=== PATIENT | female | born 1960 | race Two or more races ===

== ENCOUNTER 2018-02-09 01:00 | Outpatient (CLI) | payer BC, OTHER | END 2018-02-09 23:59 | disposition home or self-care (01) | LOC: US 01:00 | PROVIDERS: ATTEND Legal Medicine | DX: I70.201 Unspecified atherosclerosis of native arteries of extremities, right leg (principal); Z72.0 Tobacco use | CPT/HCPCS: 93931-RT ==

== ENCOUNTER 2018-12-05 12:59 | Outpatient (CLI) | payer BC, OTHER | END 2018-12-05 23:59 | disposition home or self-care (01) | LOC: US 12:59 | PROVIDERS: ATTEND Legal Medicine | DX: I87.2 Venous insufficiency (chronic) (peripheral) (principal) ==

== ENCOUNTER 2018-12-19 14:57 | Outpatient (CLI) | payer BC, OTHER | END 2018-12-19 23:59 | disposition home or self-care (01) | LOC: US 14:57 | PROVIDERS: ATTEND Internal Medicine Cardiovascular Disease | DX: I70.203 Unspecified atherosclerosis of native arteries of extremities, bilateral legs (principal); R09.89 Other specified symptoms and signs involving the circulatory and respiratory systems | CPT/HCPCS: 93880 ==

== ENCOUNTER 2018-12-21 13:11 | Outpatient (CLI) | payer BC, OTHER ==
[2018-12-21] MEDS ORDERED: SWABABLE VALVE TRANSFER SET EA MC ONE (13:26)
[2018-12-21] MEDS ORDERED: IOHEXOL 350 100 ML INFUS..BTL ONE (13:26)
[2018-12-21] MEDS ORDERED: IV NORMAL SALINE 250 ML IV ONE (13:26)
== END 2018-12-21 23:59 | disposition home or self-care (01) ==
LOC: CT 13:11
PROVIDERS: ATTEND Internal Medicine Cardiovascular Disease
DX: I70.293 Other atherosclerosis of native arteries of extremities, bilateral legs (principal); K55.1 Chronic vascular disorders of intestine; K57.30 Diverticulosis of large intestine without perforation or abscess without bleeding; I70.0 Atherosclerosis of aorta; J98.11 Atelectasis; I51.7 Cardiomegaly; Z90.49 Acquired absence of other specified parts of digestive tract
CPT/HCPCS: 73706; 74174; Q9967; J7050